=== PATIENT | female | born 1960 | race Caucasian/White ===

== ENCOUNTER 2017-05-25 17:27 | Emergency (ER) | payer BC ==
[2017-05-25] MEDS ORDERED: HYDROcodone/Acetaminophen 5/325 mg Tablet ONE (19:46)
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
== END 2017-05-25 21:08 | disposition home or self-care (01) ==
LOC: ERS 17:27
DX: S09.90XA Unspecified injury of head, initial encounter (principal); S80.11XA Contusion of right lower leg, initial encounter; M54.2 Cervicalgia; I10 Essential (primary) hypertension; F41.9 Anxiety disorder, unspecified; V67.5XXA Driver of heavy transport vehicle injured in collision with fixed or stationary object in traffic accident, initial encounter; W22.10XA Striking against or struck by unspecified automobile airbag, initial encounter
CPT/HCPCS: 70450; 72125; 93005

== ENCOUNTER 2018-06-29 14:38 | Emergency (ER) | payer BC ==
[2018-06-29 15:30] LABS: #Basophils 0.1 thou/uL (0.0-0.2); #Eosinphils 0.2 thou/uL (0.0-0.7); #Lymphocytes 2.1 thou/uL (1.20-3.40); #Monocytes 0.5 thou/uL (0.11-0.59); #Neutrophils 6.7 thou/uL (1.40-6.50); %Basophils 1.1 % (0.0-1.0); %Eosinophils 1.6 % (0.0-10.0); %Lymphocytes 21.6 % (21.0-51.0); %Monocytes 5.3 % (0.0-10.0); %Neutrophils 70.4 % (42.0-75.0); Hemoglobin 12.7 g/dL (12.0-16.0); Mean Corpuscular HGB CONC 32.5 g/dL (32.0-36.0); Mean Corpuscular Hemoglobin 27.6 pg (27.0-31.0); Mean Corpuscular Volume 84.9 fL (78.0-98.0); Mean Platelet Volume 6.8 fL (7.4-10.4); Platelet Count 284 thou/uL (130-400); RBC Distribution Width 13.5 % (11.5-14.5); White Blood Cell (WBC) Count 9.6 thou/uL (4.8-10.8)
[2018-06-29] MEDS ORDERED: Famotidine/PF 20 mg/2ml Vial ONE (15:30)
--- NOTE | 2018-06-29 15:41 | RAD ---
ACUTE ABDOMINAL SERIES FRONTAL VIEW CHEST AND 2 VIEW ABDOMEN 5 VIEWS PROVIDED: Date: 06/29/18 CLINICAL INDICATION: Epigastric pain. FINDINGS: There is elevation of the right hemidiaphragm. There is no lobar consolidation, significant effusion, or discrete pneumothorax. Tortuosity and ectasia of the thoracic aorta is present. Cardiac silhouett e is normal in size. Bowel gas pattern is nonobstructed. No free air is seen beneath the hemidiaphrag ms. There is levoscoliosis of the lumbar spine. There are rounded densities overlying the pelvis, radha aterally, indicative of phleboliths. Metallic clip and suture material seen at the medial left upper quadrant. IMPRESSION: 1. No focal consolidation. 2. Nonobstructed bowel gas pattern. POS: [facility]
[2018-06-29 15:45] LABS: ALT (SGPT) 20 U/L (8-55); AST (SGOT) 32 U/L (5-34); Albumin 4.3 g/dL (3.5-5.0); Alkaline Phosphatase 76 U/L (40-150); Anion Gap 16 mmol/L (10-20); BUN (Urea Nitrogen) 15 mg/dL (9.8-20.1); Bilirubin, Total 0.6 mg/dL (0.2-1.2); Calc. Creatinine Clearance 0 mL/min (70-130); Calcium 9.9 mg/dL (7.8-10.44); Carbon Dioxide 21 mmol/L (22-29); Chloride 105 mmol/L (98-107); Estimated GFR-MDRD 69; Glucose 76 mg/dL (70-105); Lipase 20 U/L (8-78); Potassium 3.7 mmol/L (3.5-5.1); Protein, Total 7.3 g/dL (6.0-8.3); Sodium 138 mmol/L (136-145)
[2018-06-29] MEDS ORDERED: Mag-Al Plus 1200 MG/1200 MG/120 MG/30 ML UDCUP ONE (16:32)
[2018-06-29] MEDS ORDERED: Lidocaine Viscous Sol 2% 15 ml UD Cup ONE (16:32)
== END 2018-06-29 17:13 | disposition home or self-care (01) ==
LOC: SCSER 14:38
DX: R10.13 Epigastric pain (principal); E78.5 Hyperlipidemia, unspecified; I10 Essential (primary) hypertension; F32.9 Major depressive disorder, single episode, unspecified; Z79.899 Other long term (current) drug therapy
CPT/HCPCS: 74022; 80053; 83605; 83690; 84484; 85025; 93005; 96361; 96374; S0028

== ENCOUNTER 2018-08-03 07:46 | Outpatient (CLI) | payer BC ==
--- NOTE | 2018-08-03 09:49 | CT ---
CT ABDOMEN AND PELVIS WITH ORAL AND IV CONTRAST: Date: 08/03/18 HISTORY: Abdominal pain, epigastric pain and swelling. Patient has had a history of gastric sleeve and hiatal hernia repair 4 years ago. COMPARISON: 08/29/09. FINDINGS: There are postop changes of vertical sleeve gastric procedure and hiatal hernia repair. No calcified gallstones are seen. The lung bases are clear. The cyst in the anterior aspect of the left lobe of the liver is again noted and currently measures a bout 2.0 cm. A tiny low density lesion is seen in the posterior segment of the right lobe of the live r close to the dome, too small to characterize, which was not seen on the previous study. Spleen, pancreas, adrenal glands, and left kidney are normal. Tiny low density lesion in the right ki dney is again seen. No free air, free fluid, or lymphadenopathy seen in the abdomen or pelvis. There are vascular calcifi cations without evidence of aneurysmal dilatation of the abdominal aorta. Uterus is present. There ar e degenerative changes in the spine. The small bowel loops are not abnormally dilated. There is minimal sigmoid diverticulosis. IMPRESSION: 1. Left hepatic lobe cyst. 2. Tiny low density lesion in right lobe of liver, too small to characterize, likely cyst. 3. Probable tiny right renal cyst. 4. Minimal sigmoid diverticulosis. POS: [facility]
== END 2018-08-03 07:47 | disposition home or self-care (01) ==
LOC: BICCT 07:46
PROVIDERS: ATTEND Surgery
DX: R19.00 Intra-abdominal and pelvic swelling, mass and lump, unspecified site (principal); K76.89 Other specified diseases of liver; K57.30 Diverticulosis of large intestine without perforation or abscess without bleeding
CPT/HCPCS: 74177

== ENCOUNTER 2019-03-10 21:47 | Emergency (ER) | payer BC ==
--- NOTE | 2019-03-10 22:36 | CT ---
CT Brain WO Con History: Headache. History of tumor Comparison: CT brain 2018 Findings: Left posterior occipital encephalomalacia is similar. No acute hemorrhage or infarct. No mi dline shift or mass effect. Ventricular size and extra-axial CSF spaces are normal. Impression: No acute intracranial abnormality.
--- NOTE | 2019-03-10 22:41 | CT ---
CT Cervical Spine WO Con History: Headache Comparison: CT cervical spine May 2017 Findings: The occipital condyles are intact. The odontoid process is intact. Similar C3 over C4 anter olisthesis due to severe right facet arthropathy. No acute fracture or malalignment. Asymmetric left C5/C6 subtle facet joint widening is similar. Transverse processes are intact. High-grade right osseous neural foraminal narrowing at C3/C4. Visualized upper ribs are intact. The left subclavian arteries tortuous. Impression: Chronic findings. No acute fracture or malalignment.
[2019-03-10] MEDS ORDERED: diphenhydrAMINE 50 MG/ML VIAL ONE (22:51)
[2019-03-10] MEDS ORDERED: Metoclopramide HCl 10 MG/2 ML VIAL ONE (22:51)
[2019-03-10] MEDS ORDERED: traMADol HCl 50 MG TAB ONE (23:41)
[2019-03-10] MEDS ORDERED: Ketorolac Tromethamine 30 MG/ML VIAL ONE (23:41)
== END 2019-03-11 00:25 | disposition home or self-care (01) ==
LOC: ERS 21:47
DX: R51 Headache (principal); E78.5 Hyperlipidemia, unspecified; I10 Essential (primary) hypertension; F32.9 Major depressive disorder, single episode, unspecified
CPT/HCPCS: 36415; 70450; 72125; 80307; 96365; 96375; J1200; J1885; J2765

== ENCOUNTER 2019-03-29 08:05 | Outpatient (CLI) | payer BC ==
--- NOTE | 2019-03-29 09:59 | MRI ---
MRI CERVICAL SPINE WITHOUT CONTRAST: Date: 03/29/19 HISTORY: Cervical radiculopathy. Right-sided neck pain. FINDINGS: The vertebral body heights and marrow signal are maintained. There is Grade I anterolisthesis of C3 o kenny C4 vertebral bodies. Disc osteophyte complexes and uncovertebral hypertrophic changes are most pr ominent at C4-5 and C5-6 levels. These result in impingement of the anterior thecal sac without babita cord compression. The cervical spinal cord demonstrates normal course, caliber, and signal. There is severe right-sided neural foraminal stenosis at C3-4 level. The paraspinal musculature is normal. 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 IMPRESSION: Cervical spondylosis with mild central canal stenosis at C4-5 and C5-6 levels, and severe right-sided neural foraminal stenosis at C3-4 level. POS: [facility]
--- NOTE | 2019-03-29 10:21 | MRI ---
MRI BRAIN WITH AND WITHOUT IV CONTRAST: Date: 03/29/19 HISTORY: Migraine, meningioma. COMPARISON: 05/26/16. FINDINGS: The 12mm sessile homogeneously enhancing extra-axial mass consistent with meningioma of the planum sp henoidale is stable. No restricted diffusion is seen. The focal encephalomalacia in the posterior lef t cerebellar hemisphere is stable. No evidence of acute infarct, hemorrhage intra-axial mass, or abno rmal extra-axial fluid collections are seen. The ventricular size is normal and the basilar cisterns are patent. There is a small amount of fluid in the mastoid air cells and mucosal disease in the para nasal sinuses. IMPRESSION: 1. No evidence of acute intracranial process. 2. Stable planum sphenoidale meningioma. 3. Paranasal sinus disease. POS: [facility]
[2019-03-29] MEDS ORDERED: Magnevist 469MG/ML 20 ML VIAL ONE (13:34)
== END 2019-03-29 08:06 | disposition home or self-care (01) ==
LOC: BICMRI 08:05
PROVIDERS: ATTEND Internal Medicine
DX: G43.909 Migraine, unspecified, not intractable, without status migrainosus (principal); D32.9 Benign neoplasm of meninges, unspecified; J32.9 Chronic sinusitis, unspecified; M47.22 Other spondylosis with radiculopathy, cervical region; M48.02 Spinal stenosis, cervical region
CPT/HCPCS: 70553; 72141; 82565; A9579

== ENCOUNTER 2019-05-18 01:56 | Emergency (ER) | payer BC ==
[2019-05-18 02:25] LABS: Bilirubin Negative (Negative); Blood, Urine Trace (Negative); Clarity Clear (Clear); Glucose, Urine (Dipstick) Normal (Negative); Leukocyte 250 Leu/uL (Negative); Nitrite Negative (Negative); Protein, Urine (Dipstick) Negative (Neg-Trace); RBC/HPF 0-3 HPF (0-3); Squamous Epithelial 0-3 HPF (0-3); Urobilinogen Normal mg/dL (Less than 2)
[2019-05-18 02:29] LABS: #Basophils 0.1 thou/uL (0.0-0.2); #Eosinphils 0.4 thou/uL (0.0-0.7); #Neutrophils 6.5 thou/uL (1.40-6.50); %Eosinophils 3.2 % (0.0-10.0); %Lymphocytes 33.3 % (21.0-51.0); %Monocytes 8.2 % (0.0-10.0); %Neutrophils 54.3 % (42.0-75.0); Mean Corpuscular HGB CONC 33.8 g/dL (32.0-36.0); Mean Corpuscular Hemoglobin 29.8 pg (27.0-31.0); Mean Corpuscular Volume 88.2 fL (78.0-98.0); Mean Platelet Volume 7.1 fL (7.4-10.4); Platelet Count 413 thou/uL (130-400); RBC Distribution Width 11.7 % (11.5-14.5); Red Blood Cell (RBC) Count 5.37 mill/uL (4.20-5.40)
[2019-05-18 02:31] LABS: Bacteria/HPF 1+ HPF (None Seen); Sperm/HPF 3+ HPF (None Seen)
[2019-05-18 02:42] LABS: Amphetamine Not Detected (NotDetected); Benzodiazepine Screen Detected (NotDetected); Cocaine Metabolite Screen Not Detected (NotDetected); Medtox Reader # READER 4; Methamphetamine Not Detected (NotDetected); Opiate Screen Detected (NotDetected); Phencyclidine (PCP) Not Detected (NotDetected); THC/Cannabinoid Screen Not Detected (NotDetected)
[2019-05-18 02:43] LABS: Barbiturates Screen Not Detected (NotDetected); Medtox Control Line Valid? VALID (VALID); Methadone Not Detected (NotDetected); Oxycodone Screen Not Detected (NotDetected); Tricyclic Screen Not Detected (NotDetected)
[2019-05-18 02:50] LABS: ALT (SGPT) 16 U/L (8-55); AST (SGOT) 16 U/L (5-34); Acetaminophen Less than 6.0 mcg/mL (10.0-30.0); Alcohol 56 mg/dL (Less than 10); Alkaline Phosphatase 122 U/L (40-110); Anion Gap 16 mmol/L (10-20); BUN (Urea Nitrogen) 9 mg/dL (9.8-20.1); Bilirubin, Total 0.5 mg/dL (0.2-1.2); CK (CPK) 30 U/L (29-168); Calc. Creatinine Clearance 0 mL/min (70-130); Calcium 9.2 mg/dL (7.8-10.44); Carbon Dioxide 17 mmol/L (22-29); Chloride 110 mmol/L (98-107); Estimated GFR-MDRD 80; Globulin 3.1 g/dL (2.4-3.5); Glucose 114 mg/dL (70-105); Potassium 3.2 mmol/L (3.5-5.1); Protein, Total 7.1 g/dL (6.0-8.3); Salicylate Less than 8.0 mg/dL (15.0-30.0); Sodium 140 mmol/L (136-145)
[2019-05-18] MEDS ORDERED: Cephalexin 250 MG CAP ONE (07:00)
[2019-05-18] MEDS ORDERED: hydrOXYzine 25 MG TAB ONE (07:26)
== END 2019-05-18 12:43 ==
LOC: ERS 01:56
DX: T42.4X2A Poisoning by benzodiazepines, intentional self-harm, initial encounter (principal); N39.0 Urinary tract infection, site not specified; E78.5 Hyperlipidemia, unspecified; I10 Essential (primary) hypertension; F32.9 Major depressive disorder, single episode, unspecified; Z79.899 Other long term (current) drug therapy
CPT/HCPCS: 36416; 80053; 80306; 80307; 81003; 81015; 82550; 84443; 85025; 93005; 96360; 96361

== ENCOUNTER → 2020-03-11 | Outpatient (CLI) | payer BC | LOC: SLEEPLAB 17:30 | PROVIDERS: ATTEND Internal Medicine | DX: G47.33 Obstructive sleep apnea (adult) (pediatric) (principal); R53.83 Other fatigue; R06.83 Snoring; I10 Essential (primary) hypertension; K21.9 Gastro-esophageal reflux disease without esophagitis; F32.9 Major depressive disorder, single episode, unspecified; G47.00 Insomnia, unspecified | CPT/HCPCS: 95806 ==

== ENCOUNTER 2020-08-04 19:00 | Outpatient (CLI) | payer BC | END 2020-08-04 19:01 | disposition home or self-care (01) | LOC: SLEEPLAB 19:00 | PROVIDERS: ATTEND Internal Medicine | DX: G47.33 Obstructive sleep apnea (adult) (pediatric) (principal); R53.83 Other fatigue; R06.83 Snoring; G47.10 Hypersomnia, unspecified; I10 Essential (primary) hypertension; K21.9 Gastro-esophageal reflux disease without esophagitis; F41.9 Anxiety disorder, unspecified; G47.00 Insomnia, unspecified; F32.9 Major depressive disorder, single episode, unspecified | CPT/HCPCS: 95810 ==

== ENCOUNTER 2020-08-25 17:53 | Observation (INO) | payer BC ==
[2020-08-25 18:16] LABS: #Basophils 0.1 thou/uL (0.0-0.2); #Eosinphils 0.4 thou/uL (0.0-0.7); #Lymphocytes 2.9 thou/uL (1.20-3.40); #Monocytes 0.7 thou/uL (0.11-0.59); #Neutrophils 4.4 thou/uL (1.40-6.50); %Basophils 0.7 % (0.0-1.0); %Eosinophils 5.2 % (0.0-10.0); %Lymphocytes 34.5 % (21.0-51.0); %Monocytes 8.1 % (0.0-10.0); %Neutrophils 51.5 % (42.0-75.0); Hemoglobin 13.3 g/dL (12.0-16.0); Mean Corpuscular Hemoglobin 29.2 pg (27.0-31.0); Mean Corpuscular Volume 88.7 fL (78.0-98.0); Mean Platelet Volume 7.1 fL (7.4-10.4); Platelet Count 374 thou/uL (130-400); RBC Distribution Width 12.1 % (11.5-14.5); Red Blood Cell (RBC) Count 4.56 mill/uL (4.20-5.40); White Blood Cell (WBC) Count 8.5 thou/uL (4.8-10.8)
[2020-08-25 18:40] LABS: ALT (SGPT) 19 U/L (8-55); AST (SGOT) 18 U/L (5-34); Albumin 3.8 g/dL (3.5-5.0); Alkaline Phosphatase 106 U/L (40-110); Anion Gap 14 mmol/L (10-20); BUN (Urea Nitrogen) 9 mg/dL (9.8-20.1); Bilirubin, Total 0.3 mg/dL (0.2-1.2); Calc. Creatinine Clearance 0 mL/min (70-130); Calcium 9.8 mg/dL (7.8-10.44); Carbon Dioxide 25 mmol/L (22-29); Chloride 108 mmol/L (98-107); Glucose 94 mg/dL (70-105); Potassium 4.6 mmol/L (3.5-5.1); Protein, Total 6.8 g/dL (6.0-8.3); Sodium 142 mmol/L (136-145)
[2020-08-25] MEDS ORDERED: Fentanyl 100 MCG/2 ML VIAL ONE (19:42)
[2020-08-25] MEDS ORDERED: Acetaminophen 325 MG TAB PO PRN (21:57)
[2020-08-25] MEDS ORDERED: Ondansetron ODT 4 MG TAB PO PRN (22:04)
[2020-08-25] MEDS ORDERED: Ondansetron PF 4 MG/2 ML Vial IVP PRN (22:04)
[2020-08-25] MEDS ORDERED: Aspirin 325 MG TAB PO SCH (22:15)
[2020-08-25] MEDS ORDERED: Nitroglycerin 2% Ointment 1 INCH/1 GM Packet TOP SCH (22:30)
[2020-08-25] MEDS ORDERED: Morphine 4 MG/ML VIAL ONE (22:47)
[2020-08-25 23:06] LABS: Troponin I Less than 0.010 ng/mL (< 0.028)
[2020-08-25 23:39] VITALS: BMI 32.9
[2020-08-25] MEDS: Morphine 4 MG/ML VIAL SLOW IVP PRN (23:48)
[2020-08-26] MEDS ORDERED: ALPRAZolam 0.5 MG TAB PO PRN (00:03)
[2020-08-26 01:39] LABS: Troponin I Less than 0.010 ng/mL (< 0.028)
[2020-08-26 05:02] LABS: #Eosinphils 0.5 thou/uL (0.0-0.7); #Monocytes 0.6 thou/uL (0.11-0.59); #Neutrophils 3.8 thou/uL (1.40-6.50); %Basophils 0.5 % (0.0-1.0); %Lymphocytes 38.5 % (21.0-51.0); Hemoglobin 12.2 g/dL (12.0-16.0); Mean Corpuscular HGB CONC 32.5 g/dL (32.0-36.0); Mean Corpuscular Volume 89.4 fL (78.0-98.0); Mean Platelet Volume 6.9 fL (7.4-10.4); Platelet Count 319 thou/uL (130-400); RBC Distribution Width 12.1 % (11.5-14.5); Red Blood Cell (RBC) Count 4.21 mill/uL (4.20-5.40); White Blood Cell (WBC) Count 7.9 thou/uL (4.8-10.8)
[2020-08-26 05:26] LABS: Anion Gap 10 mmol/L (10-20); BUN (Urea Nitrogen) 8 mg/dL (9.8-20.1); Calc. Creatinine Clearance 105 mL/min (70-130); Calcium 9.2 mg/dL (7.8-10.44); Carbon Dioxide 28 mmol/L (22-29); Cardiac Risk 2.7 (Less than 4.5); Chloride 106 mmol/L (98-107); Cholesterol 167 mg/dl (< 200 Desired); Glucose 86 mg/dL (70-105); HDL Cholesterol 61 mg/dL (>60 Neg Risk); LDL Cholesterol, Calculated 88 mg/dL; Potassium 3.7 mmol/L (3.5-5.1); Sodium 140 mmol/L (136-145); Triglycerides 88 mg/dL (Less than 150)
[2020-08-26] MEDS: Morphine 4 MG/ML VIAL SLOW IVP PRN (07:49)
[2020-08-26] MEDS ORDERED: ADENOSINE 60 MG/20 ML VIAL ONE (08:47)
[2020-08-26] MEDS ORDERED: Non-Formulary Item 1 EACH (Esomeprazole Magnesium [Nexium] 40 MG Capsule.Dr) PO SCH (09:00)
[2020-08-26] MEDS ORDERED: Fenofibrate Nanocrystallized 145 MG TAB PO SCH (09:00)
[2020-08-26] MEDS ORDERED: Valsartan 80 MG TAB PO SCH (09:00)
[2020-08-26] MEDS ORDERED: Atorvastatin Calcium 40 MG TAB PO SCH (09:00)
[2020-08-26] MEDS ORDERED: Enoxaparin Sodium 40 MG/0.4 ML SYRINGE SC SCH (09:00)
[2020-08-26] MEDS ORDERED: Aspirin Chewable 81 MG TAB PO SCH (09:00)
[2020-08-26] MEDS ORDERED: Nitroglycerin 2% Ointment 1 INCH/1 GM Packet TOP SCH (09:00)
[2020-08-26] MEDS ORDERED: DULoxetine 30 MG CAP PO SCH (09:00)
[2020-08-26] MEDS ORDERED: Hydrochlorothiazide 25 MG TAB PO SCH (09:00)
[2020-08-26 15:45] VITALS: BP 122/73; TEMP 98.4
[2020-08-26] MEDS ORDERED: Aripiprazole 10 MG TAB PO SCH (21:00)
[2020-08-26] MEDS ORDERED: clonazePAM 1 MG TAB PO SCH (21:00)
== END 2020-08-26 16:20 | disposition home or self-care (01) ==
LOC: ERS 17:53 → 2NO 21:43
PROVIDERS: ADMIT Student in an Organized Health Care Education/Training Program; ATTEND Internal Medicine
DX: R07.89 Other chest pain (principal); I10 Essential (primary) hypertension; K21.9 Gastro-esophageal reflux disease without esophagitis; E78.5 Hyperlipidemia, unspecified; K44.9 Diaphragmatic hernia without obstruction or gangrene; Z79.82 Long term (current) use of aspirin; Z79.899 Other long term (current) drug therapy
CPT/HCPCS: 36415; 71045; 71275; 78452; 80048; 80053; 80061; 83690; 83880; 84484; 85025; 93005; 93017; 94760; 96374; 96375; 96376; A9500; G0378; J0153; J2270; J3010

== ENCOUNTER 2021-07-21 10:09 | Outpatient (CLI) | payer BC | END 2021-07-21 10:10 | disposition home or self-care (01) | LOC: MRI 10:09 | PROVIDERS: ATTEND Internal Medicine | DX: R55 Syncope and collapse (principal); H74.8X3 Other specified disorders of middle ear and mastoid, bilateral; R90.89 Other abnormal findings on diagnostic imaging of central nervous system | CPT/HCPCS: 70551 ==

== ENCOUNTER 2022-07-28 16:04 | Outpatient (CLI) | payer BC | END 2022-07-28 16:05 | disposition home or self-care (01) | LOC: BICRAD 16:04 | PROVIDERS: ATTEND Nurse Practitioner Family | DX: R05.9 Cough, unspecified (principal); R09.89 Other specified symptoms and signs involving the circulatory and respiratory systems; K44.9 Diaphragmatic hernia without obstruction or gangrene | CPT/HCPCS: 71046 ==

== ENCOUNTER 2023-11-10 08:40 | Outpatient (CLI) | payer BC | END 2023-11-10 08:41 | disposition home or self-care (01) | LOC: BICCT 08:40 | PROVIDERS: ATTEND Internal Medicine Gastroenterology | DX: K44.9 Diaphragmatic hernia without obstruction or gangrene (principal); R11.2 Nausea with vomiting, unspecified; N28.89 Other specified disorders of kidney and ureter; Z90.3 Acquired absence of stomach [part of] | CPT/HCPCS: 74160; 82565 ==

== ENCOUNTER 2024-12-26 13:53 | Outpatient (CLI) | payer BC | END 2024-12-26 13:54 | disposition home or self-care (01) | LOC: ULT 13:53 | PROVIDERS: ATTEND Internal Medicine | DX: R10.2 Pelvic and perineal pain (principal); R39.15 Urgency of urination | CPT/HCPCS: 76770; 76856 ==